=== PATIENT | female | born 1975 | race Caucasian/White ===

== ENCOUNTER 2023-11-23 15:22 | Observation (INO) ==
--- NOTE | 2023-11-23 16:40 | History & Physical Report ---
Date of Service November 23, 2023 Assessment & Plan (1) Allergic reaction: Plan: Suspected secondary to oxaliplatin per oncology - treated with steroids, diphenhydramine, famotidine at [facility] No current significant symptoms Continue prednisone 20mg PO daily for additional 2 days Diphenhydramine 25mg PO PRN Famotidine in addition to diphenhydramine if not effective (2) Stage III carcinoma of colon: Plan: s/p sigmoid and upper rectum laparoscopic lower anterior resection 10/01/2023 Just received round 2 of FOLFOX chemotherapy (3) Hypertension: Plan: Continue losartan/HCTZ Plan VTE Prophylaxis - deferred given likely short duration of stay and ambulatory status Diet - regular Disposition - observation to med/surg Admission and Anticipated Discharge Date Admission Date: November 23, 2023 History of Present Illness Chief Complaint: Allergic reaction Primary Care Provider: Iliana Garces MD Ronen Gutierrez is a 48 year old female with colon cancer on her second round of FOLFOX chemotherapy who presents as a direct admission due to concern for an allergic reaction. Allergic reaction thought to be secondary to oxaliplatin. Earlier in the day she felt her throat was starting to close up with a gravel feeling and mildly slurred speech she thinks because of the throat feeling. Associated muscle cramps and weakness in her distal extremities. No allergic reaction to previous having FOLFOX chemotherapy during round 1 except for some cold sensitivity. No current throat swelling or difficulty breathing. No skin changes. Hands mostly feel back to normal. She was treated with steroids, diphenhydramine and famotidine in the [facility]. Stomach is a little tight and sore, severity 2-3/10 - just started this afternoon. She feels this may just be gas. Allergies Allergy/AdvReac Type Severity Reaction Status Date / Time aprepitant [From Emend] Allergy Intermediate Verified 11/12/23 14:34 fosaprepitant [From Emend] Allergy Intermediate Verified 11/12/23 14:34 latex Allergy Mild Rash Verified 11/12/23 14:31 nickel Allergy Mild Skin Verified 11/12/23 14:31 irritation oxycodone Allergy Mild Rash, Verified 11/12/23 14:31 sweating, mental confusion Penicillins Allergy Mild Rash Verified 11/12/23 14:31 Home Medications Medication Instructions Recorded Confirmed Type escitalopram oxalate 20 mg tablet 20 mg PO QAM 10/28/23 11/23/23 History (Lexapro) fluticasone propionate 50 1 spray intranasal QAM 10/28/23 11/23/23 History mcg/actuation nasal spray,suspension (Flonase Allergy Relief) lorazepam 0.5 mg tablet 0.5 mg PO DAILY PRN panic 11/12/23 11/23/23 Rx attack(s) #5 tabs losartan 50 mg-hydrochlorothiazide 1 tab PO QAM 11/14/23 11/23/23 History 12.5 mg tablet ondansetron 8 mg disintegrating 8 mg PO Q8H PRN Nausea And Vomiting 11/14/23 11/23/23 History tablet Past Med/Surg History Problem List (Updated 11/24/23 @ 00:20 by Hector Simms MD) Allergic reaction Generalized weakness (Acute) Hyperlipemia No meds Hypertension Stage III carcinoma of colon Medical History Allergic rhinitis TMJ click "Not severe" Depression Anxiety History of migraine History of COVID-2020- mild symptoms, resolved Surgical History Port-A-Cath in place (11/02/23) Insertion of Access Port with Fluoroscopy(Left) - Kaden Barrera DO History of postoperative nausea and vomiting History of loop electrical excision procedure (LEEP) History of tooth extraction History of wisdom tooth extraction Hx of colonoscopy 08/2023 Hx of inguinal hernia surgery 1976 H/O umbilical hernia repair 2011 H/O colectomy Laparoscopic LAR (10/01/23), [facility] Family History Grandmother (Maternal) Colorectal cancer Aunt Diabetes Grandfather (Maternal) Diabetes Grandfather (Maternal) Hypertension Other Cancer No family history of adverse response to anesthesia Social History Smoking Status: Never smoker Second Hand Exposure: No; Do You Dip or Chew Tobacco: No; Hx Alcohol Use: No Hx Substance Use: No Preferred Language: Telugu Communication Ability: Effective Hairspring Staker Required: No Beliefs That Will Affect Care: None marital status: Current Living Situation: Family Current Living Situation Comment: Lives with children current occupational status: employed How many Children do You have: 2 Other Information That Helps Us Care for You: No Feels Safe at Home: Yes Safety Concerns: Feels Safe At This Time Diet Comment: dairy and sugar free Assistive Devices: None Review of Systems Review of Systems: All systems reviewed & are unremarkable except as noted in HPI & below Physical Exam Constitutional: WD/WN, vitals as above Eyes: + anicteric sclerae; normal pupil size ENMT: external ear and nose normal, oropharynx normal Respiratory: normal respiratory effort, lungs clear to auscultation no stridor Auscultation: no wheezes Cardiovascular: RRR, no murmur, no edema Gastrointestinal (Abdomen): normal bowel sounds, soft, nontender, no hepatosplenomegaly Musculoskeletal: no cyanosis or clubbing, extremities motor strength 5/5 Skin: no rashes, warm and dry Neurologic: moves all extremities and awake; not confused Psychiatric: A+Ox3, euthymic affect Code Status & VTE Plan Code Status Full VTE Prophylaxis Plan VTE Prophylaxis will be ordered: No PG Care Time/CCT Total # of Minutes Spent Total Time Spent with Patient: Total time spent is greater than 50% in coordination of care (as documented) at patient's floor/unit and/or counseling patient: Coding Level of Care Code 38277 INT INP/OBS CARE MIN Diagnoses Allergic reaction T78.40XA Stage III carcinoma of colon C18.9 Hypertension I10
[2023-11-23] MEDS ORDERED: diphenhydrAMINE Capsule 25 MG CAP PO PRN (17:41)
[2023-11-23] MEDS ORDERED: SIMETHICONE 80 MG CHEW PO PRN (18:13)
[2023-11-23] MEDS ORDERED: FAMOTIDINE 20 MG TAB PO PRN (18:16)
[2023-11-23] MEDS ORDERED: ONDANSETRON 4 MG OD TAB PO PRN (18:19)
[2023-11-23] MEDS: POTASSIUM CHLORIDE CRTAB 20 MEQ TABCR PO STA (18:44)
[2023-11-23] MEDS: LORazepam 0.5 MG TAB PO PRN (21:50)
[2023-11-24 08:18] LABS: Basophils # (auto) 0.04 K/uL (0.00-0.20); Basophils % (auto) 0.7 %; Eosinophils # (auto) 0.01 K/uL (0.00-0.50); Eosinophils % (auto) 0.2 %; Hematocrit (blood only) 35.5 % (37.0-47.0); Hemoglobin 12.1 g/dl (12.0-16.0); Immature Granulocytes # (auto) 0.03 K/uL (0.01-0.20); Immature Granulocytes % (auto) 0.5 %; Lymphocytes # (auto) 0.25 K/uL (1.20-3.40); Lymphocytes % (auto) 4.1 %; Mean Corpuscular Hemoglobin 29.2 pg (25.0-34.0); Mean Corpuscular Hgb Conc 34.1 g/dL (32.0-36.0); Mean Corpuscular Volume 85.7 fL (80.0-100.0); Mean Platelet Volume 10.2 fL (9.4-12.4); Monocytes # (auto) 0.69 K/uL (0.11-0.59); Monocytes % (auto) 11.2 %; Neutrophils # (auto) 5.13 K/uL (1.40-6.50); Neutrophils % (auto) 83.3 %; Platelet Count 256 K/uL (130-400); RDW Coefficient of Variation 13.5 % (11.5-14.5); Red Blood Count 4.14 M/uL (4.20-5.40); White Blood Count 6.15 K/ul (4.8-10.8)
[2023-11-24 08:28] LABS: Albumin Globulin Ratio 1.6 (0.9-2); Albumin Level 3.9 gm/dl (3.4-5.0); BUN Creatinine Ratio 10.6 (10-20); Bilirubin,Total 0.5 mg/dl (0.2-1.0); Creatinine Clr Calc Pharmacy 98.7 ml/min; Est GFR (African American) 121.9 ml/min; Est GFR (Non-African American) 105.2 ml/min; Globulin 2.5 gm/dl (2.5-4.0); Potassium 3.8 mmol/L (3.5-5.1); Total Protein 6.4 gm/dl (6.0-8.3)
[2023-11-24] MEDS: predniSONE 20 MG TAB PO SCH (09:00)
[2023-11-24] MEDS: LOSARTAN/HCTZ 50/12.5MG TAB PO SCH (09:00)
[2023-11-24] MEDS: FLUTICASONE PROPIONATE NA SPR 16 GM BTL NAE SCH (09:01)
[2023-11-24] MEDS: ESCITALOPRAM OXALATE 20 MG TAB PO SCH (09:01)
--- NOTE | 2023-11-24 14:55 | Hospitalist Progress Note ---
Date of Service November 24, 2023 Assessment & Plan (1) Allergic reaction: Plan: - Patient had allergic reaction had [facility], [facility]. - No current significant symptoms on presentation to ED - Continue prednisone 20 mg p.o. daily until 11/25/2023 - Diphenhydramine 25 mg p.o. as needed. Famotidine in addition to diphenhydramine is not effective. - Patient reports significant anxiety related to this allergic reaction as well as from her recent cancer diagnosis. She asked to stay in the hospital 11/24/2023, with anticipated discharge 11/25/2023. (2) Stage III carcinoma of colon: Plan: - Diagnosed in August 2023. S/p sigmoid and upper rectum laparoscopic lower anterior resection 10/01/2023 - Just received round 2 of FOLFOX chemotherapy prior to admission, which is suspected to be the cause of her allergic reaction (3) Hypertension: Plan: Continue losartan/HCTZ Plan VTE Prophylaxis - deferred given likely short duration of stay and ambulatory status CODE STATUS: Full code Admission and Anticipated Discharge Date Admission Date: November 23, 2023 Subjective Patient seen and evaluated at bedside this morning. She reports that she is doing better today, however still anxious about the allergic reaction. She reports her hands being shaky and some mild flushing on her face secondary to steroids. Her lungs are clear, she denies any shortness of breath, difficulty breathing, or chest pain. Normal oropharynx, no tongue swelling, but she does report "weird sensation" of her cheeks. We discussed possible discharge home today, and the patient asked for me to reevaluate her in the afternoon. In the afternoon, patient was napping when I first entered the room. She reports that she continues to feel better. However, she asked if she could stay the night for further monitoring as she is still shaken up about the allergic reaction. She states that Dr. Asencio is planning to see her today, however she has not seen the patient yet at the time of my second evaluation. Physical Exam Physical Exam: General: No acute distress, nondiaphoretic, well-developed, well-nourished. Skin: The skin was without rashes, erythema, edema, or bruising. Cardiac: Regular rate and rhythm without murmurs gallops or rubs. Pulm: Clear to auscultation bilaterally without wheezes, rales or rhonchi. No retractions or accessory muscle use. Abdominal: Positive bowel sounds x 4. Soft, nontender, without masses or organomegaly. No guarding or rebound tenderness. Neuro: A&O x3. No focal neurological deficits. Results & Data Results & Data Vital Signs (Past 12 Hours) Vital Signs Temp Resp BP Pulse Ox O2 Del Method 11/24/23 07:43 36.7 C 15 163/91 H 99 Room Air Laboratory Results Reviewed CBC Reviewed CMP PG Care Time/CCT Total # of Minutes Spent Total Time Spent with Patient: Total time spent is greater than 50% in coordination of care (as documented) at patient's floor/unit and/or counseling patient: Coding Level of Care Code 01298 SUB INP/OBS CARE 2/35MIN Diagnoses Allergic reaction T78.40XA Stage III carcinoma of colon C18.9 Hypertension I10
[2023-11-25 09:55] LABS: BUN Creatinine Ratio 12.5 (10-20); Calcium 8.9 mg/dl (8.6-10.3); Creatinine Clr Calc Pharmacy 90.4 ml/min; Est GFR (African American) 115.6 ml/min; Est GFR (Non-African American) 99.7 ml/min; Hematocrit (blood only) 38.2 % (37.0-47.0); Hemoglobin 12.9 g/dl (12.0-16.0); Mean Corpuscular Hemoglobin 29.2 pg (25.0-34.0); Mean Corpuscular Hgb Conc 33.8 g/dL (32.0-36.0); Mean Corpuscular Volume 86.4 fL (80.0-100.0); Mean Platelet Volume 10.6 fL (9.4-12.4); Platelet Count 238 K/uL (130-400); Potassium 3.8 mmol/L (3.5-5.1); RDW Coefficient of Variation 13.8 % (11.5-14.5); Red Blood Count 4.42 M/uL (4.20-5.40); White Blood Count 3.24 K/ul (4.8-10.8)
[2023-11-25 10:05] LABS: Basophils # (auto) 0.05 K/uL (0.00-0.20); Basophils % (auto) 1.5 %; Eosinophils # (auto) 0.28 K/uL (0.00-0.50); Eosinophils % (auto) 8.6 %; Immature Granulocytes # (auto) 0.01 K/uL (0.01-0.20); Immature Granulocytes % (auto) 0.3 %; Lymphocytes # (auto) 0.73 K/uL (1.20-3.40); Lymphocytes % (auto) 22.5 %; Monocytes # (auto) 0.51 K/uL (0.11-0.59); Monocytes % (auto) 15.7 %; Neutrophils # (auto) 1.66 K/uL (1.40-6.50); Neutrophils % (auto) 51.4 %; Platelet Estimate Normal (Normal)
--- NOTE | 2023-11-25 16:23 | Discharge Summary ---
Date of Service November 25, 2023 Admission HPI Per Admitting Provider Ronen Gutierrez is a 48 year old female with colon cancer on her second round of FOLFOX chemotherapy who presents as a direct admission due to concern for an allergic reaction. Allergic reaction thought to be secondary to oxaliplatin. Earlier in the day she felt her throat was starting to close up with a gravel feeling and mildly slurred speech she thinks because of the throat feeling. Associated muscle cramps and weakness in her distal extremities. No allergic reaction to previous having FOLFOX chemotherapy during round 1 except for some cold sensitivity. No current throat swelling or difficulty breathing. No skin changes. Hands mostly feel back to normal. She was treated with steroids, [facility]hydram[facility] Stomach is a little tight and sore, severity 2-3/10 - just started this afternoon. She feels this may just be gas. Principal Diagnosis Allergic reaction during chemotherapy - suspected to be related to oxaloplatin Discharge Exam PHYSICAL EXAMINATION Last 24h vital signs reviewed, see documentation in flowsheet General: comfortable appearing, no distress HEENT: Normocephalic, atraumatic, pupils round and equal, sclerae anicteric, no conjunctival injection, moist mucus membranes no stridor or lip or tongue swelling, no rash, no wheezing Lungs: Normal respiratory effort. Clear to auscultation bilaterally. No RRW Heart: Regular rate and rhythm, no murmurs. No JVD Port-A-Cath accessed left upper chest Abdomen: Soft, nondistended. Extremities: Warm, dry, well-perfused. No extremity edema. Neuro: Alert and oriented x 4, face symmetric, moves 4 extremities well Psych: Normal affect and behavior Discharge Data Allergies Allergy/AdvReac Type Severity Reaction Status Date / Time aprepitant [From Emend] Allergy Intermediate Verified 11/12/23 14:34 fosaprepitant [From Emend] Allergy Intermediate Verified 11/12/23 14:34 latex Allergy Mild Rash Verified 11/12/23 14:31 nickel Allergy Mild Skin Verified 11/12/23 14:31 irritation oxycodone Allergy Mild Rash, Verified 11/12/23 14:31 sweating, mental confusion Penicillins Allergy Mild Rash Verified 11/12/23 14:31 oxaloplatin Allergy Severe Swelling Uncoded 11/25/23 16:18 of Lip/Tongue/Throat Ordered Studies 11/25/23 09:17 11/25/23 09:17 Hospital Course (1) Allergic reaction: 48-year-old woman undergoing FOLFOX chemotherapy for stage III colon cancer who developed feeling that her throat was starting to close up following chemo. Suspected allergic reaction to oxaloplatin. - treated with steroids, diphenhydramine, famotidine. - improved with no significant symptoms on presentation to ED - treated with prednisone 20 mg p.o. daily through 11/25/2023 - Diphenhydramine 25 mg p.o. as needed. - steroids have caused increase in anxiety, mild tremor - small amount of lorazepam po given on discharge PRN anxiety until steroids effect wears off (2) Stage III carcinoma of colon: - Diagnosed in August 2023. S/p sigmoid and upper rectum laparoscopic lower anterior resection 10/01/2023 - Just received round 2 of FOLFOX chemotherapy prior to admission, which is suspected to be the cause of her allergic reaction - has follow up with Dr. Asnecio (3) Hypertension: Continue losartan/HCTZ BPs were elevated in the hospital - partially anxiety and steroids, additional agent may be warranted if continuing to be elevated in outpatient setting Total Time Total Time Spent Total Time Spent (In Minutes): <30 min Discharge Plan Discharge Items Patient Disposition: Home - Self-Care Reason For Visit: allergic reaction Discharge Diagnosis: Allergic reaction to chemotherapy Activity: Resume your previous activity Non-emergency contact: Primary Care Provider and Oncologist Call non-emergency contact if: you have any medication questions, your symptoms worsen and you have a fever Follow-up/Referrals: Iliana Garces MD [Primary Care Provider] - 12/02/23 10:30 am (APPOINTMENT WITH ALEYDA DIAZ) Lizy Asencio MD [Physician] - Diet: Regular Addtl Attending Provider Instructions: You were treated with steroids (prednisone) for apparent allergic reaction to chemotherapy It seems that the reaction is over, however, seek immediate medical attention if you have recurrent throat, mouth or lip/tongue swelling -rarely, your blood pressure medicine losartan can cause this type of swelling. If the problem recurs, losartan could be the culprit If you have mild itchiness or mild rash you could use diphenhydramine (benadryl) as needed Follow up with Dr. Asencio to discuss future treatment I gave you prescription for lorazepam for a few days for situational anxiety and prednisone side effects -this medication can be sedating, do not drive while taking it, avoid alcohol Pending Studies at Discharge: No Stand-Alone Forms: My [facility], Smoking Cessation Medications and DC Order Prescriptions: New lorazepam 0.5 mg Tablet 0.5 mg PO Q6H PRN (Reason: anxiety) Qty: 5 0RF diphenhydramine HCl [Benadryl] 25 mg Capsule 25 mg PO Q4H PRNQty: 0 0RF Continued escitalopram oxalate [Lexapro] 20 mg tablet 20 mg PO QAM fluticasone propionate [Flonase Allergy Relief] 50 mcg/actuation spray,suspension 1 spray intranasal QAM Rx Instructions: administer into each nostril ondansetron 8 mg tablet,disintegrating 8 mg PO Q8H PRN (Reason: Nausea And Vomiting) losartan-hydrochlorothiazide 50-12.5 mg tablet 1 tab PO QAM Discontinued lorazepam 0.5 mg tablet 0.5 mg PO DAILY PRN (Reason: panic attack(s)) Qty: 5 0RF Discharge Orders: Discharge Order (Routine); Ordered 11/25/23 Ordered By: Suma Roberts/Other Patient Handouts: [facility] Admission Data Admit Date/Time: 11/23/23 16:36 Attending Provider: Suma Springer Admit Provider: Hector Simms Primary Care Provider: Iliana Garces Other Interventions: Discharge Summary Assessment (RN) Last Done: 11/25/23 11:53 Coding Level of Care Code 86804 IN/OBS DISCH 30 MIN/LESS Diagnoses Allergic reaction T78.40XA Stage III carcinoma of colon C18.9 Hypertension I10
== END 2023-11-25 12:30 | disposition home or self-care (01) ==
LOC: SUATTDRO 16:01 → 3E 16:01 → INTOOBSV 16:01